=== PATIENT | female | born 1990 | race Two or more races ===

== ENCOUNTER → 2021-12-15 | Outpatient (CLI) | payer MEDICAID ==
[2021-12-15 11:21] LABS: Basophils # (auto) 0 10 ^3/uL (0-0.2); Basophils % (auto) 0.4 % (0.0-2.0); Eosinophils # (auto) 0.1 10 ^3/uL (0-0.8); Eosinophils % (auto) 0.6 % (0.0-7.0); Hematocrit 34.4 % (36.0-46.0); Hemoglobin 11.7 g/dL (12.2-16.2); Lymphocytes # (auto) 1.7 10 ^3/uL (0.4-5.4); Mean Corpuscular Hemoglobin 28.4 pg (28.0-32.0); Mean Corpuscular Hgb Conc. 34.1 g/dL (32.0-36.0); Mean Corpuscular Volume 83.3 fL (80.0-100.0); Monocytes # (auto) 0.5 10 ^3/uL (0-1.3); Monocytes % (auto) 5.9 % (0.0-12.0); Neutrophils % (auto) 72.1 % (37.0-80.0); Nucleated Red Blood Cells % 0.1 %; Red Blood Cells 4.12 10^6/uL (4.0-5.20); Red Cell Distribution Width 13.4 % (11.8-14.3); White Blood Cell 8.3 10^3/uL (4.4-10.8)
[2021-12-15 11:45] LABS: Alcohol, Urine < 3.0 mg/dL (0-10); Amphetamine Screen, Urine NEGATIVE (NEGATIVE); Barbiturate Scree,Urine NEGATIVE (NEGATIVE); Benzodiazephine Screen, Urine NEGATIVE (NEGATIVE); Cannabinoid Screen, Urine NEGATIVE (NEGATIVE); Cocaine Screen, Urine NEGATIVE (NEGATIVE); Opiate Scree,Urine NEGATIVE (NEGATIVE); Phencyclidine Screen, Urine NEGATIVE (NEGATIVE)
[2021-12-16 07:06] LABS: RPR Non Reactive (Non Reactive)
== END | disposition home or self-care (01) ==
LOC: LAB 10:11
PROVIDERS: ATTEND Obstetrics & Gynecology
DX: Z34.80 Encounter for supervision of other normal pregnancy, unspecified trimester (principal); Z36.0 Encounter for antenatal screening for chromosomal anomalies; N39.0 Urinary tract infection, site not specified
CPT/HCPCS: 36415; 80307; 83036; 84112; 84702; 85025; 86592; 86703; 86762; 86850; 86900; 86901; 87086; 87088

== ENCOUNTER → 2022-02-16 | Outpatient (CLI) | payer MEDICAID | END | disposition home or self-care (01) | LOC: LAB 07:19 | PROVIDERS: ATTEND Obstetrics & Gynecology | DX: Z34.80 Encounter for supervision of other normal pregnancy, unspecified trimester (principal); O99.810 Abnormal glucose complicating pregnancy | CPT/HCPCS: 36415; 82951; 86850; 86900; 86901; 87086; 87340 ==

== ENCOUNTER 2022-04-06 12:50 | Observation (INO) | payer MEDICAID ==
[~2022-04-06] VITALS: Ht 167.6 cm; Wt 102.1 kg
[2022-04-06] MEDS ORDERED: PREN-96 PO (13:37)
[2022-04-06 13:43] LABS: Basophils # (auto) 0 10 ^3/uL (0-0.2); Basophils % (auto) 0.4 % (0.0-2.0); Eosinophils # (auto) 0 10 ^3/uL (0-0.8); Eosinophils % (auto) 0.2 % (0.0-7.0); Hematocrit 30.2 % (36.0-46.0); Hemoglobin 10.2 g/dL (12.2-16.2); Lymphocytes # (auto) 1.5 10 ^3/uL (0.4-5.4); Lymphocytes % (auto) 18.3 % (10.0-50.0); Mean Corpuscular Hemoglobin 27.5 pg (28.0-32.0); Mean Corpuscular Hgb Conc. 33.8 g/dL (32.0-36.0); Mean Corpuscular Volume 81.4 fL (80.0-100.0); Monocytes # (auto) 0.4 10 ^3/uL (0-1.3); Monocytes % (auto) 5.3 % (0.0-12.0); Neutrophils # (auto) 6.1 10 ^3/uL (1.6-8.6); Neutrophils % (auto) 75.8 % (37.0-80.0); White Blood Cell 8.1 10^3/uL (4.4-10.8)
[2022-04-06 13:56] LABS: Albumin 2.5 g/dL (3.4-5.0); Calcium 8.5 mg/dL (8.5-10.1); Potassium 3.4 mmol/L (3.5-5.1)
[2022-04-06 13:58] LABS: BUN/Creatinine Ratio 6.7; Bilirubin, Total 0.2 mg/dL (0.2-1.0); Total Protein 6.4 g/dL (6.4-8.2); Uric Acid 5.1 mg/dL (2.6-6.0)
[2022-04-06 14:16] LABS: Alcohol, Urine < 3.0 mg/dL (0-10); Amphetamine Screen, Urine NEGATIVE (NEGATIVE); Barbiturate Scree,Urine NEGATIVE (NEGATIVE); Benzodiazephine Screen, Urine NEGATIVE (NEGATIVE); Cannabinoid Screen, Urine NEGATIVE (NEGATIVE); Cocaine Screen, Urine NEGATIVE (NEGATIVE); Creatinine, Urine 47 mg/dL (30.0-125.0); Opiate Scree,Urine NEGATIVE (NEGATIVE); Phencyclidine Screen, Urine NEGATIVE (NEGATIVE); Protein, Urine 13.3 mg/dL (0.0-11.9)
[2022-04-06 14:22] LABS: Urine Bacteria FEW /hpf (None Seen); Urine Blood Negative /uL (Negative); Urine Specific Gravity 1.008 (1.001-1.035); Urine WBC 3 /hpf (0 - 5)
== END 2022-04-06 14:37 | disposition home or self-care (01) ==
LOC: LDRP 12:50 → UNDOADMOB 12:50 → LDRP 13:08
PROVIDERS: ADMIT Obstetrics & Gynecology; ATTEND Obstetrics & Gynecology
DX: O13.3 Gestational [pregnancy-induced] hypertension without significant proteinuria, third trimester (principal); Z3A.34 34 weeks gestation of pregnancy; Z79.899 Other long term (current) drug therapy
CPT/HCPCS: 36415; 59025; 80053; 80307; 81001; 81002; 82570; 84156; 84550; 85025; 94760; G0378

== ENCOUNTER 2022-04-08 10:17 | Observation (INO) | payer MEDICAID ==
[~2022-04-08 10:17] MED LIST: PREN-96 PO
[2022-04-08 11:11] LABS: Protein, Urine 13.4 mg/dL (0.0-11.9)
[2022-04-08 12:04] LABS: 24 Hr. Total Protein, Urine 294.8 mg/24 Hr (<149.1)
== END 2022-04-08 12:44 | disposition home or self-care (01) ==
LOC: LDRP 10:17 → UNDOADMOB 10:17 → LDRP 10:43
PROVIDERS: ADMIT Obstetrics & Gynecology; ATTEND Obstetrics & Gynecology
DX: O13.3 Gestational [pregnancy-induced] hypertension without significant proteinuria, third trimester (principal); Z3A.34 34 weeks gestation of pregnancy; Z87.891 Personal history of nicotine dependence
CPT/HCPCS: 59025; 76818; 81002; 84156; 94760; G0378

== ENCOUNTER 2022-04-14 14:29 | Observation (INO) | payer MEDICAID | END 2022-04-14 18:57 | disposition home or self-care (01) | LOC: UNDOADMOB 14:29 → LDRP 14:29 | PROVIDERS: ADMIT Obstetrics & Gynecology; ATTEND Obstetrics & Gynecology | DX: O13.3 Gestational [pregnancy-induced] hypertension without significant proteinuria, third trimester (principal); Z20.822 Contact with and (suspected) exposure to COVID-19; O99.513 Diseases of the respiratory system complicating pregnancy, third trimester; J00 Acute nasopharyngitis [common cold]; R05.9 Cough, unspecified; O26.813 Pregnancy related exhaustion and fatigue, third trimester; O26.893 Other specified pregnancy related conditions, third trimester; R51.9 Headache, unspecified; R42 Dizziness and giddiness; O36.8130 Decreased fetal movements, third trimester, not applicable or unspecified; Z3A.35 35 weeks gestation of pregnancy | CPT/HCPCS: 36415; 59025; 76818; 81002; 87426; 94760; G0378 ==

== ENCOUNTER 2022-04-17 09:51 | Observation (INO) | payer MEDICAID | END 2022-04-17 12:10 | disposition home or self-care (01) | LOC: LDRP 09:51 | PROVIDERS: ADMIT Obstetrics & Gynecology; ATTEND Obstetrics & Gynecology | DX: O13.3 Gestational [pregnancy-induced] hypertension without significant proteinuria, third trimester (principal); O26.893 Other specified pregnancy related conditions, third trimester; R05.9 Cough, unspecified; R09.89 Other specified symptoms and signs involving the circulatory and respiratory systems; Z3A.35 35 weeks gestation of pregnancy; Z87.891 Personal history of nicotine dependence | CPT/HCPCS: 59025; 76818; 81002; G0378 ==

== ENCOUNTER 2022-04-21 09:57 | Observation (INO) | payer MEDICAID | END 2022-04-21 15:18 | disposition home or self-care (01) | LOC: UNDOADMOB 12:57 → LDRP 12:57 | PROVIDERS: ADMIT Obstetrics & Gynecology; ATTEND Obstetrics & Gynecology | DX: O13.3 Gestational [pregnancy-induced] hypertension without significant proteinuria, third trimester (principal); Z20.822 Contact with and (suspected) exposure to COVID-19; Z3A.36 36 weeks gestation of pregnancy | CPT/HCPCS: 36415; 59025; 76818; 81002; 94760 ==

== ENCOUNTER → 2022-04-21 | Outpatient (CLI) | payer MEDICAID ==
[2022-04-21 12:27] LABS: Basophils # (auto) 0 10 ^3/uL (0-0.2); Basophils % (auto) 0.4 % (0.0-2.0); Eosinophils # (auto) 0 10 ^3/uL (0-0.8); Eosinophils % (auto) 0.1 % (0.0-7.0); Hematocrit 28.3 % (36.0-46.0); Hemoglobin 9.6 g/dL (12.2-16.2); Lymphocytes # (auto) 1.2 10 ^3/uL (0.4-5.4); Lymphocytes % (auto) 17.2 % (10.0-50.0); Mean Corpuscular Hemoglobin 27.1 pg (28.0-32.0); Mean Corpuscular Volume 79.7 fL (80.0-100.0); Monocytes # (auto) 0.3 10 ^3/uL (0-1.3); Monocytes % (auto) 4.9 % (0.0-12.0); Neutrophils # (auto) 5.5 10 ^3/uL (1.6-8.6); Neutrophils % (auto) 77.4 % (37.0-80.0); Red Blood Cells 3.55 10^6/uL (4.0-5.20); White Blood Cell 7.2 10^3/uL (4.4-10.8)
[2022-04-21 12:39] LABS: Urine Bacteria MANY /hpf (None Seen); Urine Blood Negative /uL (Negative); Urine Budding Yeast FEW /hpf (None Seen); Urine Hyaline Cast FEW /lpf (0 - 2); Urine Specific Gravity 1.005 (1.001-1.035); Urine WBC 8 /hpf (0 - 5)
[2022-04-22 07:06] LABS: RPR Non Reactive (Non Reactive)
== END | disposition home or self-care (01) ==
LOC: LAB 11:46
PROVIDERS: ATTEND Obstetrics & Gynecology
DX: Z34.80 Encounter for supervision of other normal pregnancy, unspecified trimester (principal); Z3A.00 Weeks of gestation of pregnancy not specified
CPT/HCPCS: 36415; 81001; 84112; 85025; 86592

== ENCOUNTER 2022-04-24 11:25 | Observation (INO) | payer MEDICAID ==
[~2022-04-24] VITALS: Ht 167.6 cm; Wt 104.3 kg
[2022-04-24 12:13] LABS: Urine Bacteria FEW /hpf (None Seen); Urine Blood Negative /uL (Negative); Urine Specific Gravity 1.006 (1.001-1.035); Urine WBC 2 /hpf (0 - 5)
[2022-04-24 12:15] LABS: Basophils # (auto) 0 10 ^3/uL (0-0.2); Basophils % (auto) 0.5 % (0.0-2.0); Eosinophils # (auto) 0 10 ^3/uL (0-0.8); Eosinophils % (auto) 0.3 % (0.0-7.0); Hematocrit 27.4 % (36.0-46.0); Hemoglobin 9.4 g/dL (12.2-16.2); Lymphocytes # (auto) 1.3 10 ^3/uL (0.4-5.4); Lymphocytes % (auto) 18.9 % (10.0-50.0); Mean Corpuscular Hemoglobin 27.6 pg (28.0-32.0); Mean Corpuscular Hgb Conc. 34.2 g/dL (32.0-36.0); Mean Corpuscular Volume 80.7 fL (80.0-100.0); Monocytes # (auto) 0.5 10 ^3/uL (0-1.3); Monocytes % (auto) 6.8 % (0.0-12.0); Neutrophils # (auto) 4.9 10 ^3/uL (1.6-8.6); Neutrophils % (auto) 73.5 % (37.0-80.0); Red Blood Cells 3.39 10^6/uL (4.0-5.20); Red Cell Distribution Width 12.8 % (11.8-14.3); White Blood Cell 6.7 10^3/uL (4.4-10.8)
[2022-04-24 12:22] LABS: Albumin 2.2 g/dL (3.4-5.0); Calcium 9.1 mg/dL (8.5-10.1); Potassium 3.2 mmol/L (3.5-5.1)
[2022-04-24 12:23] LABS: INR 0.91 (0.9-1.15); Partial Thromboplastin Time 23.6 sec (24.6-33.4)
[2022-04-24 12:26] LABS: BUN/Creatinine Ratio 9.1; Bilirubin, Total 0.3 mg/dL (0.2-1.0); Uric Acid 5.3 mg/dL (2.6-6.0)
[2022-04-24 12:26] LABS: Protein, Urine 12.5 mg/dL (0.0-11.9)
[2022-04-24] MEDS ORDERED: NIFEdipine 10 MG CAP PO ONE (13:15)
[2022-04-24] MEDS ORDERED: NIF10C PO (13:17)
[2022-04-24] MEDS ORDERED: POTASSIUM CHL 20 Meq TABLET PO ONE (14:15)
== END 2022-04-24 14:41 | disposition home or self-care (01) ==
LOC: LDRP 11:25
PROVIDERS: ADMIT Obstetrics & Gynecology; ATTEND Obstetrics & Gynecology
DX: O13.3 Gestational [pregnancy-induced] hypertension without significant proteinuria, third trimester (principal); Z3A.36 36 weeks gestation of pregnancy; Z79.899 Other long term (current) drug therapy
CPT/HCPCS: 36415; 59025; 76818; 80053; 81001; 81002; 82570; 84156; 84550; 85025; 85610; 85730; 94760; G0378

== ENCOUNTER 2022-04-26 11:02 | Observation (INO) | payer MEDICAID ==
[~2022-04-26 11:02] MED LIST changes: +NIF10C PO
== END 2022-04-26 12:30 | disposition home or self-care (01) ==
LOC: LDRP 11:02 → UNDOADMOB 11:02 → LDRP 11:18 → UNDODISOB 12:30
PROVIDERS: ADMIT Obstetrics & Gynecology Obstetrics; ATTEND Obstetrics & Gynecology Obstetrics
DX: O13.3 Gestational [pregnancy-induced] hypertension without significant proteinuria, third trimester (principal); O60.03 Preterm labor without delivery, third trimester; O62.9 Abnormality of forces of labor, unspecified; Z3A.37 37 weeks gestation of pregnancy
CPT/HCPCS: 59025; 81002; 94760; G0378

== ENCOUNTER 2022-04-29 09:07 | Observation (INO) | payer MEDICAID | END 2022-04-29 13:50 | disposition home or self-care (01) | LOC: UNDOADMOB 11:09 → LDRP 11:09 → UNDODISOB 13:50 | PROVIDERS: ADMIT Obstetrics & Gynecology; ATTEND Obstetrics & Gynecology | DX: O13.3 Gestational [pregnancy-induced] hypertension without significant proteinuria, third trimester (principal); O26.893 Other specified pregnancy related conditions, third trimester; R51.9 Headache, unspecified; O14.03 Mild to moderate pre-eclampsia, third trimester; Z3A.37 37 weeks gestation of pregnancy | CPT/HCPCS: 59025; 76818; 81002; 94760; G0378 ==

== ENCOUNTER 2022-05-02 06:47 | Inpatient (IN) | payer MEDICAID ==
[2022-05-02] VITALS (13 sets, daily range): BP systolic 111–146; BP diastolic 68–90
[~2022-05-02] VITALS: Ht 167.6 cm; Wt 99.8 kg
[2022-05-02 07:35] LABS: Basophils # (auto) 0 10 ^3/uL (0-0.2); Basophils % (auto) 0.5 % (0.0-2.0); Eosinophils # (auto) 0 10 ^3/uL (0-0.8); Eosinophils % (auto) 0.3 % (0.0-7.0); Hematocrit 30.5 % (36.0-46.0); Hemoglobin 10.3 g/dL (12.2-16.2); Lymphocytes % (auto) 27.7 % (10.0-50.0); Mean Corpuscular Hemoglobin 27.2 pg (28.0-32.0); Mean Corpuscular Hgb Conc. 33.9 g/dL (32.0-36.0); Mean Corpuscular Volume 80.4 fL (80.0-100.0); Monocytes # (auto) 0.6 10 ^3/uL (0-1.3); Monocytes % (auto) 7.8 % (0.0-12.0); Neutrophils # (auto) 4.6 10 ^3/uL (1.6-8.6); Neutrophils % (auto) 63.7 % (37.0-80.0); Nucleated Red Blood Cells % 0.1 %; Red Cell Distribution Width 13.4 % (11.8-14.3); White Blood Cell 7.3 10^3/uL (4.4-10.8)
[2022-05-02 07:49] LABS: Albumin 2.6 g/dL (3.4-5.0); Calcium 8.6 mg/dL (8.5-10.1); INR 0.88 (0.9-1.15); Partial Thromboplastin Time 24.2 sec (24.6-33.4); Potassium 3.6 mmol/L (3.5-5.1)
[2022-05-02 07:53] LABS: BUN/Creatinine Ratio 11.8; Bilirubin, Total 0.3 mg/dL (0.2-1.0); Total Protein 6.8 g/dL (6.4-8.2); Uric Acid 5.5 mg/dL (2.6-6.0)
[2022-05-02] MEDS ORDERED: ceFAZolin 2 GM in D5W 5% 100 ML IV ONE (08:00)
[2022-05-02] MEDS ORDERED: LACTATED RINGER'S 1,000 ML IV ONE (08:00)
[2022-05-02 08:04] LABS: Urine Bacteria MANY /hpf (None Seen); Urine Blood Negative /uL (Negative); Urine Hyaline Cast FEW /lpf (0 - 2); Urine Mucus FEW (None Seen); Urine Specific Gravity 1.028 (1.001-1.035); Urine WBC 16 /hpf (0 - 5)
[2022-05-02 08:09] LABS: Amphetamine Screen, Urine NEGATIVE (NEGATIVE); Barbiturate Scree,Urine NEGATIVE (NEGATIVE); Benzodiazephine Screen, Urine NEGATIVE (NEGATIVE); Cannabinoid Screen, Urine NEGATIVE (NEGATIVE); Cocaine Screen, Urine NEGATIVE (NEGATIVE); Opiate Scree,Urine NEGATIVE (NEGATIVE); Phencyclidine Screen, Urine NEGATIVE (NEGATIVE); Protein, Urine 73.6 mg/dL (0.0-11.9)
[2022-05-02] MEDS ORDERED: HYDR-4902 PO (08:58)
[2022-05-02] MEDS ORDERED: DOCU-94 PO (08:58)
[2022-05-02] MEDS ORDERED: IBUP800T27 PO (08:58)
[2022-05-02] MEDS ORDERED: oxyTOCIN 10 UNIT/ML 10ML VIAL ONE (10:25)
[2022-05-02] MEDS ORDERED: MORPHINE SULF PF 5 MG/10 ML VIAL ONE (10:25)
[2022-05-02] MEDS ORDERED: DexAMETHasone SOD PHOS 10MG/1ML VIAL INJ ONE (10:25)
[2022-05-02] MEDS ORDERED: EPINEPHrine HCL 1 MG/1 ML AMP ONE (10:25)
[2022-05-02] MEDS ORDERED: fentaNYL CITRATE 100 MCG/2 ML VL ONE (10:25)
[2022-05-02] MEDS ORDERED: MIDAZOLAM HCL 2MG/2ML 2ml VIAL (1mg/ml) ONE (10:25)
[2022-05-02] MEDS ORDERED: SODIUM CHLORIDE LOCK 10 ML ONE (10:25)
[2022-05-02] MEDS ORDERED: BUPIVACAINE/DEXTROSE MPF 0.75% 2 ML AMP IT ONE (10:25)
[2022-05-02] MEDS ORDERED: TETRACAINE 1% INJ 2 ML VIAL IJ ONE (10:34)
[2022-05-02] MEDS ORDERED: ceFAZolin 1GM/50ML 50 ML IV SCH (10:45)
[2022-05-02] MEDS ORDERED: LACT. RINGERS/OXYTOCIN 20UNITS 1,000 ML IV ONE (10:45)
[2022-05-02] MEDS ORDERED: ONDANSETRON HCL 4 MG/2 ML VIAL IV PRN (10:45)
[2022-05-02] MEDS ORDERED: GUM (CHEWING) 1 GUM CHEW CHEW ONE (10:45)
[2022-05-02] MEDS: CARBOPROST TROMETHAMINE 250 MCG/1ML VIAL IM ONE ×2 (11:30→12:00)
[2022-05-02] MEDS ORDERED: METOCLOPRAMIDE HCL 5MG/ml INJ 2ml VIAL IV PRN (12:30)
[2022-05-02] MEDS ORDERED: diphenhdrAMINE HCL 50 MG/1 ML VL IV PRN (12:30)
[2022-05-02] MEDS ORDERED: HYDROmorphone HCL 2 MG/ML VL/or syr IV PRN ×2 (12:30)
[2022-05-02] MEDS ORDERED: DIPHENOXYLATE W/ATROPINE 2.5 MG TAB PO ONE (12:30)
[2022-05-02] MEDS ORDERED: NALOXONE HCL 0.4 MG/ML VIAL IV PRN (12:30)
[2022-05-02] MEDS ORDERED: MORPHINE SULFATE 4 MG/ML SYR/VIAL IV PRN (12:30)
[2022-05-02] MEDS ORDERED: ACETAMINOPHEN IV 1000 MG/100ML (10MG/ML) IV PRN (13:45)
[2022-05-02] MEDS: LACTATED RINGER'S 1,000 ML IV SCH ×3 (14:04→18:57)
[2022-05-02] MEDS ORDERED: RHO (D) IMMUNE GLOBULIN 300 MCG INJ IM ONE (15:45)
[2022-05-02] MEDS: ceFAZolin 1GM/50ML 50 ML IV SCH (19:38)
[2022-05-02 22:24] LABS: Eosinophils # (auto) 0 10 ^3/uL (0-0.8); Hemoglobin 9.9 g/dL (12.2-16.2); Monocytes # (auto) 0.3 10 ^3/uL (0-1.3); Neutrophils % (auto) 90.5 % (37.0-80.0)
[2022-05-02 22:25] LABS: Basophils # (auto) 0 10 ^3/uL (0-0.2); Basophils % (auto) 0.2 % (0.0-2.0); Hematocrit 29.4 % (36.0-46.0); Lymphocytes # (auto) 0.8 10 ^3/uL (0.4-5.4); Lymphocytes % (auto) 6.8 % (10.0-50.0); Mean Corpuscular Hemoglobin 27.2 pg (28.0-32.0); Mean Corpuscular Hgb Conc. 33.7 g/dL (32.0-36.0); Mean Corpuscular Volume 80.8 fL (80.0-100.0); Monocytes % (auto) 2.5 % (0.0-12.0); Neutrophils # (auto) 10.2 10 ^3/uL (1.6-8.6); Red Blood Cells 3.64 10^6/uL (4.0-5.20); Red Cell Distribution Width 13.6 % (11.8-14.3); White Blood Cell 11.3 10^3/uL (4.4-10.8)
[2022-05-03] VITALS (15 sets, daily range): BP systolic 104–143; BP diastolic 57–95
[2022-05-03] MEDS ORDERED: ACETAMINOPHEN IV 1000 MG/100ML (10MG/ML) IV PRN (01:15)
[2022-05-03] MEDS: ceFAZolin 1GM/50ML 50 ML IV SCH ×2 (03:28→10:34)
[2022-05-03] MEDS: LACTATED RINGER'S 1,000 ML IV SCH (04:16)
[2022-05-03] MEDS ORDERED: HYDROcodone-ACET 5/325MG TAB PO PRN ×2 (06:45)
[2022-05-03 06:54] LABS: Basophils # (auto) 0 10 ^3/uL (0-0.2); Eosinophils # (auto) 0 10 ^3/uL (0-0.8); Hematocrit 25.8 % (36.0-46.0); Hemoglobin 8.7 g/dL (12.2-16.2); Lymphocytes # (auto) 1.8 10 ^3/uL (0.4-5.4); Lymphocytes % (auto) 17.3 % (10.0-50.0); Mean Corpuscular Hemoglobin 27.4 pg (28.0-32.0); Mean Corpuscular Hgb Conc. 33.9 g/dL (32.0-36.0); Mean Corpuscular Volume 81.1 fL (80.0-100.0); Monocytes # (auto) 0.9 10 ^3/uL (0-1.3); Monocytes % (auto) 8.8 % (0.0-12.0); Neutrophils # (auto) 7.8 10 ^3/uL (1.6-8.6); Neutrophils % (auto) 73.9 % (37.0-80.0); Red Blood Cells 3.18 10^6/uL (4.0-5.20); Red Cell Distribution Width 13.3 % (11.8-14.3); White Blood Cell 10.6 10^3/uL (4.4-10.8)
[2022-05-03] MEDS ORDERED: TETANUS-DIPTH-ACEL PERTUSSIS 0.5ML SYR Tdap IM ONE (07:30)
[2022-05-03] MEDS: IBUPROFEN 800 MG TAB PO PRN ×2 (08:00→19:50)
[2022-05-03] MEDS: DOCUSATE CALCIUM 240 MG CAP PO SCH (10:33)
[2022-05-03] MEDS: FERROUS SULFATE 325mg EC TAB PO SCH ×2 (10:33→19:50)
[2022-05-03] MEDS: DOCUSATE SOD 100 MG CAP PO SCH ×2 (10:33→22:46)
[2022-05-03] MEDS: ACETAMINOPHEN 325 MG TAB PO PRN (12:38)
[2022-05-04 02:30] VITALS: BP 144/84
[2022-05-04 07:06] LABS: RPR Non Reactive (Non Reactive)
[2022-05-04 07:30] VITALS: BP 137/88
[2022-05-04] MEDS: IBUPROFEN 800 MG TAB PO PRN ×2 (08:16→17:26)
[2022-05-04] MEDS: FERROUS SULFATE 325mg EC TAB PO SCH ×2 (08:16→18:34)
[2022-05-04] MEDS: DOCUSATE SOD 100 MG CAP PO SCH ×2 (09:50→22:15)
[2022-05-04] MEDS: DOCUSATE CALCIUM 240 MG CAP PO SCH (09:51)
[2022-05-04 11:00] VITALS: BP 123/75
[2022-05-04 15:00] VITALS: BP 134/94
[2022-05-04 19:00] VITALS: BP 130/86
[2022-05-04] MEDS: ACETAMINOPHEN 325 MG TAB PO PRN (19:19)
[2022-05-04 23:10] VITALS: BP 132/86
[2022-05-05] MEDS: IBUPROFEN 800 MG TAB PO PRN ×2 (01:04→09:32)
[2022-05-05 03:08] VITALS: BP 122/86
[2022-05-05] MEDS: ACETAMINOPHEN 325 MG TAB PO PRN ×2 (04:07→08:05)
[2022-05-05 06:47] VITALS: BP 119/71
[2022-05-05] MEDS: FERROUS SULFATE 325mg EC TAB PO SCH (08:05)
[2022-05-05] MEDS: DOCUSATE SOD 100 MG CAP PO SCH (09:32)
[2022-05-05] MEDS: DOCUSATE CALCIUM 240 MG CAP PO SCH (09:32)
[2022-05-05 11:14] VITALS: BP 135/90
[2022-05-05 11:49] VITALS: BP 135/90
== END 2022-05-05 11:50 | disposition home or self-care (01) | DRG 540 ==
LOC: LDRP 06:47 → OBSVTOIN 07:59 → LDRP 11:56
PROVIDERS: ADMIT Obstetrics & Gynecology; ATTEND Obstetrics & Gynecology
PROC: 10D00Z1 Extraction of Products of Conception, Low, Open Approach (ICD-10-PCS; principal; 2022-05-02 10:50)
PROC: 3E0234Z Introduction of Serum, Toxoid and Vaccine into Muscle, Percutaneous Approach (ICD-10-PCS; 2022-05-03)
DX: O13.4 Gestational [pregnancy-induced] hypertension without significant proteinuria, complicating childbirth (principal); O99.214 Obesity complicating childbirth; O26.893 Other specified pregnancy related conditions, third trimester; O34.211 Maternal care for low transverse scar from previous cesarean delivery; Z37.0 Single live birth; Z3A.38 38 weeks gestation of pregnancy; Z67.11 Type A blood, Rh negative; Z20.822 Contact with and (suspected) exposure to COVID-19
CPT/HCPCS: 36415; 59025; 80053; 80307; 81001; 82570; 84156; 84550; 85025; 85610; 85730; 86592; 86850; 86900; 86901; 87426; 90384; 90715; 94760; 94762; 96360; 96361; 96372; G0378; J0131; J0171; J0690; J1100; J2250; J2590; J7060